=== PATIENT | female | born 1995 | race Caucasian/White ===

== ENCOUNTER 2016-09-08 20:11 | Emergency (ER) | payer SELFPAY ==
[~2016-09-08] VITALS: Ht 165.1 cm; Wt 78.9 kg
[2016-09-08 20:22] VITALS: BP 104/69; PULSE 114; RESP 16; TEMP 99.8; O2SAT 97
--- NOTE | 2016-09-08 21:03 | PD ---
HPI Chief Complaint: ENT Complaint Time Seen by Provider: 21:03 Travel History International Travel<30 days: No Contact w/Intl Traveler<30days: No Traveled to known affect area: No History of Present Illness HPI 21-year-old female presents to the emergency department for evaluation of fever , sore throat and cough. Patient states that yesterday she began to have nasal congestion, sore throat and dry cough. States that this morning when she woke up her symptoms have worsened and she had a fever. States that throughout the day she has had an intermittent fever but has been alternating Tylenol and ibuprofen to keep the fever down. States that the highest her fever has been was 102.5F. She also complains of nausea and body aches. Denies any chest pain, shortness of breath, abdominal pain, diarrhea, vomiting, dysuria. Denies , last stroke. 2 weeks ago. Denies any recent travel or sick contacts. No other complaints. PFSH Past Medical History Medical History: Denies Significant Hx ?: Not Social History Alcohol Use: Yes Tobacco Use: Yes Allergies-Medications (Allergen,Severity, Reaction): Coded Allergies: No Known Allergies (Unverified , 09/08/16) Reported Meds & Prescriptions Reported Meds & Active Scripts Active Tamiflu (Oseltamivir Phosphate) 75 Mg Cap 75 Mg PO BID 5 Days Review of Systems Except as stated in HPI: all other systems reviewed are Neg Physical Exam Narrative GENERAL: Well-nourished and well-developed pleasant female patient in no acute distress. SKIN: Warm and dry. HEAD: Normocephalic and atraumatic. EYES: No injection, drainage, or hyphema noted. PERRLA. EOMI. ENT: No nasal drainage noted. Oropharynx is clear and the TMs are normal with good landmarks. NECK: Supple and the trachea is midline. No lymphadenopathy is noted throughout the cervical chains. CARDIOVASCULAR: Regular rate and rhythm. RESPIRATORY: Breath sounds are equal bilaterally with no accessory muscle use, wheezing, rhonchi, or crackles. GASTROINTESTINAL: Abdomen is soft, non-tender, and nondistended. MUSCULOSKELETAL: No obvious deformities, swelling, cyanosis, or ecchymosis is present throughout the upper and lower extremities. NEUROLOGICAL: Awake, alert, and oriented. Normal speech and gait. Cranial nerves are grossly intact. Data Data Last Documented VS Vital Signs Date Time Temp Pulse Resp B/P Pulse Ox O2 Delivery O2 Flow Rate FiO2 09/08/16 21:05 18 09/08/16 20:49 09/08/16 20:22 99.8 114 97 Room Air Orders Group A Rapid Strep Screen (09/08/16 21:02) Influenzae A/B Antigen (09/08/16 21:02) Strep Culture (Group A) (09/08/16 21:10) MDM Medical Decision Making Medical Screen Exam Complete: Yes Emergency Medical Condition: Yes Differential Diagnosis Influenza versus strep throat versus URI Narrative Course 21-year-old female presents to the emergency department for evaluation of fever with cough and cold symptoms. Patient has a low-grade temperature of 99.8F. She is slightly tachycardic with a heart rate of 114 beats per minute. Physical examination is essentially unremarkable. Strep and influenza swabs have been ordered and are pending. Strep swab is negative. Influenza swab is positive for influenza A virus. Discussed supportive care with the patient. She is given a prescription for Tamiflu. Discussed signs and symptoms and when to return to the emergency department. Patient verbalizes understanding and agreement with treatment plan. Diagnosis Primary Impression: Influenza A Referrals: Primary Care Physician Patient Instructions: General Instructions, Influenza (ED) Departure Forms: Tests/Procedures, Work Release Enter return to work date: Sep 11, 2016 Additional Instructions: Rest. Drink plenty of fluids. Alternate Tylenol and ibuprofen for fever. Follow-up with your Primary Care Physician as needed. Return to the ED for any acute worsening of symptoms. Med/Other Pt SpecificInfo: Prescription(s) given Scripts Oseltamivir (Tamiflu)75 Mg Cap75 Mg PO BID 5 Days Ref 0 Prov:Shari Lorenz MD 09/08/16 Disposition: 01 DISCHARGE HOME Condition: Stable Miranda Flynn Sep 08, 2016 21:03
[2016-09-08] MEDS ORDERED: OSEL75 PO (22:18)
== END 2016-09-08 22:33 | disposition home or self-care (01) ==
LOC: PHED 20:11 → PHEFT 22:33
DX: J09.X2 Influenza due to identified novel influenza A virus with other respiratory manifestations (principal); J02.9 Acute pharyngitis, unspecified; Z72.0 Tobacco use
CPT/HCPCS: 87081; 87804; 87880; 99283

== ENCOUNTER 2016-10-12 22:16 | Emergency (ER) | payer OTHER ==
[~2016-10-12] VITALS: Ht 165.1 cm; Wt 81.8 kg
[~2016-10-12 22:16] MED LIST: OSEL75 PO
[2016-10-12 22:21] VITALS: BP 116/72; PULSE 116; RESP 16; TEMP 101.8; O2SAT 99
--- NOTE | 2016-10-12 22:40 | PD ---
HPI Chief Complaint: Flank/Kidney Pain Time Seen by Provider: 22:26 Travel History International Travel<30 days: No Contact w/Intl Traveler<30days: No Traveled to known affect area: No History of Present Illness HPI The patient is a 21-year-old female that complains of right flank pain since the 13th of this month. She denies any dysuria, frequency or urgency. She does have a fever at home. She denies any cough or chest pain. She smokes one third pack a day. The pain is sharp and reproducible by pressing on the right lateral ribs. She denies any hemoptysis. PFSH Past Medical History ADHD: Yes Past Surgical History Tonsillectomy: Yes Social History Alcohol Use: Yes Tobacco Use: Yes Substance Use: No Allergies-Medications (Allergen,Severity, Reaction): Coded Allergies: No Known Allergies (Unverified , 10/12/16) Reported Meds & Prescriptions Reported Meds & Active Scripts Active Cipro (Ciprofloxacin HCl) 500 Mg Tab 500 Mg PO BID 10 Days Macrobid (Nitrofurantoin Monoh/Nitrofur Macro) 100 Mg Cap 100 Mg PO BID Review of Systems Except as stated in HPI: all other systems reviewed are Neg Physical Exam Narrative GENERAL: The patient is alert, oriented 3 in moderate apparent distress with her right flank pain. Her vital signs show temperature 101.8 with heart rate of 116 but the rest the vital signs are normal. SKIN: Warm and dry. HEAD: Atraumatic. Normocephalic. EYES: Pupils equal and round. No scleral icterus. No injection or drainage. ENT: No nasal bleeding or discharge. Mucous membranes pink and moist. NECK: Trachea midline. No JVD. CARDIOVASCULAR: Regular rate and rhythm. No murmur appreciated. RESPIRATORY: No accessory muscle use. Clear to auscultation. Breath sounds equal bilaterally. I can completely reproduce the patient's pain by pressing on the right lateral chest wall. No flail is present and there is neither bony nor air crepitus present. GASTROINTESTINAL: Abdomen soft, non-tender, nondistended. Hepatic and splenic margins not palpable. MUSCULOSKELETAL: No obvious deformities. No clubbing. No cyanosis. No edema. NEUROLOGICAL: Awake and alert. No obvious cranial nerve deficits. Motor grossly within normal limits. Normal speech. PSYCHIATRIC: Appropriate mood and affect; insight and judgment normal. Data Data Last Documented VS Vital Signs Date Time Temp Pulse Resp B/P Pulse Ox O2 Delivery O2 Flow Rate FiO2 10/12/16 22:43 10/12/16 22:21 101.8 116 16 99 Orders Urinalysis - C+S If Indicated (10/12/16 22:37) Ed Urine Pregnancytest Poc (10/12/16 22:41) Urine Culture (10/12/16 22:40) Labs Laboratory Tests Test 10/12/16 22:40 Urine Color YELLOW Urine Turbidity SLIGHT Urine pH 5.5 Urine Specific [place] 1.018 Urine Protein 30 mg/dL Urine Glucose (UA) NEG mg/dL Urine Ketones TRACE mg/dL Urine Occult Blood LARGE Urine Nitrite POS Urine Bilirubin NEG Urine Leukocyte Esterase SMALL Urine RBC 10-14 /hpf Urine WBC 50-99 /hpf Urine WBC Clumps MOD Urine Squamous Epithelial 0-5 /hpf Cells Urine Bacteria FEW /hpf Urine Mucus OCC /lpf Microscopic Urinalysis Comment CULTURE INDICATED MDM Medical Decision Making Medical Screen Exam Complete: Yes Emergency Medical Condition: Yes Medical Record Reviewed: Yes Interpretation(s) The urine shows slight turbidity, 30 protein, trace ketones, large occult blood , positive nitrite, small leukocyte esterase with 10-14 red cells and 50-99 white cells and moderate white cell clumping's and few bacteria and culture is indicated. The [id number] urine test is negative. Differential Diagnosis Pyelonephritis, urinary stone, colitisunlikely, chest wall pain Narrative Course The patient appears to have pyelonephritis. Plan: She will be given Macrobid and she is told to increase liquid intake to increase her urinary flow. She is to follow-up with her primary care physician next week. Physician Communication Physician Communication You are given Cipro 500 mg twice daily for 10 days. This medication has been free of [facility]. Drink plenty of liquids to establish a good urine flow through your kidneys. Follow-up next week with your primary care physician. Diagnosis Primary Impression: Pyelonephritis Additional Instructions: As we discussed, increase liquid intake. It is important to establish a good urine flow through your kidneys write a urinary tract infection. Follow-up next week with your primary care physician. Med/Other Pt SpecificInfo: Prescription(s) given Scripts Ciprofloxacin (Cipro)500 Mg [id number] Mg PO BID 10 Days Ref 0 Prov:Sachin Burgos MD 10/12/16 Nitrofurantoin Monohydrate Macrocrystals (Macrobid)100 Mg [id number] Mg PO BID #20 CAP Ref 0 Prov:Sachin Burgos MD 10/12/16 Disposition: 01 DISCHARGE HOME Condition: Stable Sachin Burgos MD Oct 12, 2016 22:40
[2016-10-12 22:56] LABS: BLOOD, URINE LARGE (NEG); GLUCOSE,URINE NEG (NEG); KETONE, URINE TRACE mg/dL (NEG); PH, URINE 5.5 (5.0-8.5)
[2016-10-12 23:02] LABS: NITRITE,URINE POS (NEG)
[2016-10-12 23:03] LABS: MUCUS URINE OCC /lpf (OCC); URINE COLOR YELLOW (YELLW/STRAW)
[2016-10-12 23:04] LABS: BACTERIA, URINE FEW /hpf; SQUAMOUS EPITHELIAL CELL URINE 0-5 /hpf (0-5)
[2016-10-12 23:05] LABS: COMMENT (UR) CULTURE INDICATED; CULTURE IF INDICATED CULTURE INDICATED
[2016-10-12] MEDS ORDERED: MACR100C2 PO (23:33)
[2016-10-12] MEDS ORDERED: CIPR-9 PO (23:35)
[2016-10-12 23:45] VITALS: TEMP 100.3
[2016-10-12] MEDS ORDERED: CIPROFLOXACIN 500 MG TAB PO ONE (23:45)
== END 2016-10-12 23:46 | disposition home or self-care (01) ==
LOC: PHED 22:16
DX: N12 Tubulo-interstitial nephritis, not specified as acute or chronic (principal); B96.20 Unspecified Escherichia coli [E. coli] as the cause of diseases classified elsewhere
CPT/HCPCS: 81001; 84703; 87077; 87086; 87186; 99284